=== PATIENT | female | born 2000 | race Caucasian/White ===

== ENCOUNTER 2024-01-13 16:53 | Emergency (ER) | payer SELFPAY ==
[2024-01-13 17:11] VITALS: O2SAT 100
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
[2024-01-13 17:57] VITALS: BP 133/85; PULSE 81; RESP 18
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
== END 2024-01-13 18:09 | disposition home or self-care (01) ==
LOC: ED 16:53
DX: M79.632 Pain in left forearm (principal); M79.631 Pain in right forearm; V49.40XA Driver injured in collision with unspecified motor vehicles in traffic accident, initial encounter
CPT/HCPCS: 73090; 99283; L3908